=== PATIENT | female | born 1950 | race Caucasian/White ===

== ENCOUNTER → 2016-08-16 | Outpatient (CLI) | payer MEDICARE, OTHER ==
[~2016-08-16] MED LIST: ALDACTONE50 M1 PO; AMBIEN10 MG PO; HYDROCODON-ACET15 ML PEG; ULTRAM50 M1 PO
[2016-08-16 10:36] VITALS: BP 107/73
== END ==
LOC: AMSURD 09:56
DX: M19.90 Unspecified osteoarthritis, unspecified site (principal); Z01.818 Encounter for other preprocedural examination

== ENCOUNTER 2016-09-24 10:50 | Outpatient (RCR) | payer MEDICARE, OTHER ==
[2016-08-16 10:36] VITALS: BP 107/73
== END 2016-12-23 | disposition home or self-care (01) ==
LOC: PT
DX: Z47.1 Aftercare following joint replacement surgery (principal); Z96.612 Presence of left artificial shoulder joint

== ENCOUNTER 2016-12-26 08:41 | Outpatient (RCR) | payer MEDICARE, OTHER ==
[2016-08-16 10:36] VITALS: BP 107/73
== END 2016-12-26 09:00 | disposition home or self-care (01) ==
LOC: PT 08:41

== ENCOUNTER 2017-05-16 15:30 | Outpatient (RCR) | payer MEDICARE, OTHER ==
[2016-08-16 10:36] VITALS: BP 107/73
== END 2017-05-16 16:00 | disposition home or self-care (01) ==
LOC: PT 15:30
DX: M62.81 Muscle weakness (generalized) (principal); G24.9 Dystonia, unspecified

== ENCOUNTER → 2017-11-24 | Outpatient (CLI) | payer MEDICARE, OTHER ==
[2016-08-16 10:36] VITALS: BP 107/73
== END ==
LOC: RAD 10:07
DX: M25.531 Pain in right wrist (principal); Z88.2 Allergy status to sulfonamides

== ENCOUNTER → 2018-03-27 | Outpatient (CLI) | payer MEDICARE, OTHER ==
[2016-08-16 10:36] VITALS: BP 107/73
== END ==
LOC: RAD 10:18
DX: M17.11 Unilateral primary osteoarthritis, right knee (principal)

== ENCOUNTER → 2018-05-12 | Outpatient (CLI) | payer MEDICARE, OTHER ==
[2018-04-20 09:03] VITALS: BP 115/81
== END ==
LOC: MAMMO 09:45
DX: Z12.31 Encounter for screening mammogram for malignant neoplasm of breast (principal)

== ENCOUNTER → 2018-05-12 | Outpatient (CLI) | payer MEDICARE, OTHER ==
[2018-04-20 09:03] VITALS: BP 115/81
== END ==
LOC: RAD 09:46 → MAMMO 10:45
DX: Z13.820 Encounter for screening for osteoporosis (principal); M85.80 Other specified disorders of bone density and structure, unspecified site

== ENCOUNTER → 2019-07-12 | Outpatient (CLI) | payer MEDICARE, OTHER ==
[2018-04-20 09:03] VITALS: BP 115/81
[2019-07-12 11:27] LABS: EOS # 0.2 (0.04-0.40); EOS % 4.6 % (1.0-5.0); HEMATOCRIT 41.9 % (37.0-47.0); HEMOGLOBIN 13.4 g/dL (12.5-16.0); LYMPH# 1.3 (1.50-4.00); MEAN CELL VOLUME 89 fl (78-100); MEAN CORPUSCULAR HEMOGLOBIN 29 pg (27-31); MEAN CORPUSCULAR HGB CONC 32 g/dL (33-37); MEAN PLATELET VOLUME 9.8 fl (7.4-10.4); MONO # 0.4 (0.20-0.80); NEU # 2.4 (1.40-6.50); PLATELET COUNT 263 K/mm3 (130-400); RED CELL DISTRIBUTION WIDTH 14.7 % (11.5-14.5); WHITE BLOOD COUNT 4.4 K/mm3 (4.8-10.8)
[2019-07-12 11:36] LABS: POTASSIUM 3.6 mmol/L (3.5-5.1)
[2019-07-12 11:40] LABS: PROTHROMBIN TIME 9.9 SECONDS (9.0-12.0); TOTAL BILIRUBIN 0.3 mg/dL (0.2-1.2)
[2019-07-12 11:44] LABS: MAGNESIUM 2.02 mg/dL (1.60-2.60)
[2019-07-12 12:25] LABS: URINE APPEARANCE HAZY; URINE BILIRUBIN NEGATIVE (NEGATIVE); URINE BLOOD NEGATIVE (NEGATIVE); URINE COLOR YELLOW; URINE GLUCOSE NEGATIVE (NEGATIVE); URINE KETONE NEGATIVE (NEGATIVE); URINE LEUKOCYTE ESTERASE NEGATIVE (NEGATIVE); URINE NITRATE NEGATIVE (NEGATIVE); URINE PROTEIN(semi-quant) 1+ mg/dL (NEGATIVE); URINE UROBILINOGEN NORMAL (NORMAL)
[2019-07-12 12:26] LABS: URINE MUCUS PRESENT (NOT PRESENT)
== END ==
LOC: LAB 11:14
PROVIDERS: Internal Medicine
DX: Z01.818 Encounter for other preprocedural examination (principal); M17.0 Bilateral primary osteoarthritis of knee